=== PATIENT | female | born 1980 | race Caucasian/White ===

== ENCOUNTER 2018-06-09 09:17 | Emergency (ER) | payer OTHER, SELFPAY ==
[2018-06-09 09:20] VITALS: BP 122/84; PULSE 88; RESP 16; TEMP 36.9; O2SAT 99; BMI 23.8
--- NOTE | 2018-06-09 09:27 | DI.US.S_ITS ---
PROCEDURE: US OB <= 14 WEEKS FETUS INDICATIONS: POSITIVE HOME TEST, PRIOR HISTORY OF ECTOPIC OUTSIDE/PRIOR DATING DATA: Last menstrual period (LMP): Unknown. LMP-based estimated date of delivery (LIBORIO): Unknown. First dating scan (date and location): 06/09/18. Estimated date of delivery (LIBORIO) from first dating scan: 02/07/19. TECHNIQUE: Real-time scanning was performed of the fetus and maternal pelvic organs, with image documentation. Endovaginal scanning was also performed to better visualize the fetus and maternal ovaries. COMPARISON: None. FINDINGS: Embryo: A single intrauterine gestational sac is identified, which measures approximately 6 mm in diameter (mean gestational sac diameter), correlating with an estimated age of 5 weeks 2 days. A pole is not yet visualized. A yolk sac is seen. No significant subchorionic hemorrhage is appreciated. Measurement variability in dating: +/- 4 weeks by LMP, +/- 7 days by mean sac diameter (use before 6 weeks gestation if crown-rump length not able to be measured), +/- 5 days by crown-rump length (up to 8 weeks 6 days gestation), +/- 7 days by crown-rump length (up to 13 weeks 6 days gestation). Maternal organs: Ovaries are unremarkable. There may be a left-sided corpus luteum cyst. Limited images through the kidneys demonstrate no hydronephrosis. IMPRESSION: 1. Single intrauterine gestational sac. A pole/heart rate are not yet seen, which is felt to be related to the early gestational age. Please consider followup imaging in 1 to 2 weeks to confirm viability. 2. Estimated age is 5 weeks 2 days with a corresponding due date of 02/07/19. Dictated by: Esau Randall M.D. on 06/09/2018 at 9:46 Approved by: Esau Randall M.D. on 06/09/2018 at 9:48
--- NOTE | 2018-06-09 09:31 | PC.NURSE ---
unknown lmp per pt.
--- NOTE | 2018-06-09 09:40 | ED_ITS ---
HPI - General Adult General Chief complaint: OB/Uterine Contractions Stated complaint: Time Seen by Provider: 06/09/18 09:21 Source: patient Mode of arrival: ambulatory Limitations: no limitations History of Present Illness HPI narrative: Patient is a at approximately 8 weeks EGA. All of her prior pregnancies have been ?miscarriages ?she states that her last back in 2009 was a right-sided tubal ectopic when she had her tube removed. She states this was an unplanned . She did 2 positive home test 2 days ago. She denies any abdominal pain vaginal bleeding or loss of fluid. She came in because she was concerned of the location of the given her prior history of ectopic. Related Data Previous Rx's Medication Instructions Recorded vit,[id number] 1 tab PO DAILY #60 tab 06/09/18 [PNV 29-1] Allergies Allergy/AdvReac Type Severity Reaction Status Date / Time No Known Drug Allergies Allergy Verified 06/09/18 09:26 Review of Systems Constitutional Denies fever(s) Gastrointestinal Gastrointestinal: Denies abdominal pain, Denies nausea and Denies vomiting Genitourinary Denies dysuria, Denies urinary urgency, Denies vaginal discharge and Denies vaginal dryness Integumentary/Breasts Denies rash Hematologic/Lymphatic Denies easy bleeding and Denies easy bruising [facility] Medical History Ectopic (Acute) Social History lives independently: Yes Social History lives independently: Yes Exam Initial Vital Signs Initial Vital Signs: Vital Signs Temperature 98.4 F 06/09/18 09:20 Pulse Rate 88 06/09/18 09:20 Respiratory Rate 16 06/09/18 09:20 Blood Pressure 122/84 06/09/18 09:20 Pulse Oximetry 99 06/09/18 09:20 Const Orientation: alert and awake Resp Effort & Inspection: normal respiratory effort Cardio Rate: regular rate Skin Lesions: no lesions Rashes: no rashes Neuro General: alert and awake Cognition: normal cognition Speech: speech normal Extrem General: capillary refill normal Psych Appearance: grossly normal and well kempt Course Orders Ordered: ED Orders 06/09/18 09:27 US OB <= 14 weeks fetus Stat 06/09/18 09:54 ABO RH Type Stat HCG Quantitative Stat Vital Signs - 8 hr 06/09/18 09:20 06/09/18 10:16 06/09/18 10:33 Temperature 98.4 F 98.4 F Pulse Rate 88 88 86 Respiratory Rate 16 16 16 Blood Pressure 122/84 122/84 Blood Pressure [Left Arm] 110/75 Pulse Oximetry 99 99 100 Medical Decision Making Lab Data Lab results reviewed: Yes I reviewed the patient's lab results. Lab Results 06/09/18 06/09/18 Range/Units 09:54 09:54 HCG, Quant 4542.7 mIU/mL Blood Type A Negative Imaging Data Pelvic ultrasound: Radiologist's impression: [address] [address] Ultrasound Report Signed Patient: Mini Marti#: [id number] : 1980Acct:[id number] Age/Sex: 37 / FDate of Service: 06/09/18 Loc: ED Accession Number: [id number] Procedure: US OB <= 14 weeks fetus Ordering Provider: Romel Acuna D.O. PROCEDURE: US OB <= 14 WEEKS FETUS INDICATIONS: POSITIVE HOME TEST, PRIOR HISTORY OF ECTOPIC OUTSIDE/PRIOR DATING DATA: Last menstrual period (LMP): Unknown. LMP-based estimated date of delivery (LIBORIO): Unknown. First dating scan (date and location): 06/09/18. Estimated date of delivery (LIBORIO) from first dating scan: 02/07/19. TECHNIQUE: Real-time scanning was performed of the fetus and maternal pelvic organs, with image documentation. Endovaginal scanning was also performed to better visualize the fetus and maternal ovaries. COMPARISON: None. FINDINGS: Embryo: A single intrauterine gestational sac is identified, which measures approximately 6 mm in diameter (mean gestational sac diameter), correlating with an estimated age of 5 weeks 2 days. A pole is not yet visualized. A yolk sac is seen. No significant subchorionic hemorrhage is appreciated. Measurement variability in dating: +/- 4 weeks by LMP, +/- 7 days by mean sac diameter (use before 6 weeks gestation if crown-rump length not able to be measured), +/- 5 days by crown-rump length (up to 8 weeks 6 days gestation), +/- 7 days by crown-rump length (up to 13 weeks 6 days gestation). Maternal organs: Ovaries are unremarkable. There may be a left-sided corpus luteum cyst. Limited images through the kidneys demonstrate no hydronephrosis. IMPRESSION: 1. Single intrauterine gestational sac. A pole/heart rate are not yet seen, which is felt to be related to the early gestational age. Please consider followup imaging in 1 to 2 weeks to confirm viability. 2. Estimated age is 5 weeks 2 days with a corresponding due date of 02/07/19. Dictated by: Esau Randall M.D. on 06/09/2018 at 9:46 Approved by: Esau Randall M.D. on 06/09/2018 at 9:48 MDM Narrative Medical decision making narrative: Pelvic ultrasound shows a gestational sac and a yolk sac consistent with a intrauterine and no signs of ectopic . This does correspond with the level of the hCG. She is not having any vaginal bleeding or vaginal discharge. No indication for RhoGAM. I did inform the patient of the results of all of these testing. She is going [place]. She is going to tell her command today that she is . She was given return precautions. She expressed understanding and agreement with plan. Discharge Plan Departure Patient Disposition: Home Clinical Impression: Qualifiers: Weeks of gestation: less than 8 weeks Qualified Code(s): Z3A.01 - Less than 8 weeks gestation of Instructions: Diet Activity Restrictions/Additional Instructions: The ultrasound today does show a early intrauterine . You do need to make a [place] Also tell your command that your so that they can place him on a job that is safer you in your baby. Return to the emergency department for any new or worsening symptoms. Prescriptions: New PNV 29-1 29 mg iron- 1 mg tablet 1 tab PO DAILY Qty: 60 RF: 0
--- NOTE | 2018-06-09 09:42 | PC.NURSE ---
when asked, pt states[place] had to call very early and had to be waiting all day, its easier to go to [facility].
[2018-06-09 10:16] VITALS: BP 122/84; PULSE 88; RESP 16; TEMP 36.9; O2SAT 99; BMI 23.8
[2018-06-09 10:33] VITALS: BP 110/75; PULSE 86; RESP 16; O2SAT 100
[2018-06-09 11:47] LABS: HCG Quantitative /Beta subunit 4542.7 mIU/mL
== END 2018-06-09 12:15 | disposition home or self-care (01) ==
PROVIDERS: Emergency Provider Emergency Medicine
DX: O26.891 Other specified pregnancy related conditions, first trimester (principal); Z3A.01 Less than 8 weeks gestation of pregnancy
CPT/HCPCS: 76801; 76817; 84702; 86900; 86901; 99283

== ENCOUNTER → 2018-09-11 10:49 | Outpatient (CLI) | payer OTHER, SELFPAY ==
--- NOTE | 2018-09-11 | DI.MRI.S_ITS ---
PROCEDURE: MR HEAD/BRAIN WO CON INDICATIONS: APHASIA TECHNIQUE: Noncontrast axial T1 spin echo, axial T2 fast spin echo, sagittal and axial FLAIR, coronal T2 fast spin echo, axial gradient echo, axial diffusion and ADC through the brain. COMPARISON: None. FINDINGS: Image quality: Excellent. CSF Spaces: Basal cisterns are patent. No extra-axial fluid collections. Ventricles are normal in size and shape. Brain: No intracranial masses or hemorrhage. Lr/white matter interface is normal. Brainstem appears normal. Diffusion-weighted images demonstrate no acute ischemic insult. No chronic ischemic insults. Normal intravascular flow voids are present. Skull and face: Calvarium has normal marrow signal. Orbits appear normal. Sinuses: Sinuses and mastoids are clear. IMPRESSION: Unremarkable study, without an imaging explanation found for the patient's presenting symptoms. No findings of acute or subacute infarction can be seen. Dictated by: Yariel White M.D. on 09/11/2018 at 11:13 Approved by: Yariel White M.D. on 09/11/2018 at 11:14
== END ==
PROVIDERS: PCP Obstetrics & Gynecology; Visit Provider Obstetrics & Gynecology
DX: O09.892 Supervision of other high risk pregnancies, second trimester (principal); R47.01 Aphasia; R44.8 Other symptoms and signs involving general sensations and perceptions; Z3A.18 18 weeks gestation of pregnancy
CPT/HCPCS: 70551

== ENCOUNTER → 2019-01-13 13:47 | Outpatient (CLI) | payer OTHER, SELFPAY ==
[2019-01-14 14:17] LABS: Strep Grp B PCR NEG for Grp B Strep
== END ==
PROVIDERS: PCP Obstetrics & Gynecology; Visit Provider Family Medicine
DX: Z34.83 Encounter for supervision of other normal pregnancy, third trimester (principal); Z3A.36 36 weeks gestation of pregnancy
CPT/HCPCS: 87653

== ENCOUNTER → 2019-01-19 07:39 | Outpatient (CLI) | payer OTHER, SELFPAY ==
--- NOTE | 2019-01-19 07:40 | DI.US.S_ITS ---
PROCEDURE: US OB LIMITED INDICATIONS: DECREASED SIZE FOR DATES AND POOR GROWTH OUTSIDE/PRIOR DATING DATA: Last menstrual period (LMP): Not available. LMP-based estimated date of delivery (LIBORIO): Not available. First dating scan (date and location): 06/09/18. Estimated date of delivery (LIBORIO) from first dating scan: 02/07/19. TECHNIQUE: Real-time scanning was performed of the fetus, with image documentation and biometric measurements. Endovaginal scanning: No data for this study. COMPARISON: None. FINDINGS: General: A single living intrauterine gestation is present. Presentation: Vertex. Placenta: Placental position is a right-sided, without previa. Amniotic fluid index: 12.1 cm, normal range is 5-24 cm. heart rate: 136 beats per minute. biometrics: Biparietal diameter: 9.0 cm, 36 weeks 2 days Head circumference: 33.4 cm, 38 weeks 1 day Abdominal circumference: 29.6 cm, 33 weeks 4 days Femur length: 6.8 cm, 34 weeks 6 days Estimated gestational age from initial scan: 37 weeks 2 days Composite gestational age from present scan: 35 weeks 5 days Estimated weight and percentile: 2487 g, 6th percentile Measurement variability for biometric dating: +/- 7 days from 14 weeks to 15 weeks 6 days gestation, +/- 10 days from 16 weeks to 21 weeks 6 days gestation, +/- 2 weeks from 22 weeks to 27 weeks 6 days gestation, +/- 3 weeks for 28 weeks gestation or later. weight reference: 4500 g or EFW >90/95% is considered macrosomia or large for gestational age. EFW <10% is small for gestational age. EFW 5% or less is considered intra-uterine growth restriction. Other: Not applicable. IMPRESSION: The estimated weight is at the lower 6th percentile for current gestational age based on the earliest OB ultrasound, approaching the diagnosis of microsomia. Normal amniotic fluid volume. The delivery date currently is estimated to be centered on 02/07/19 from the earliest OB ultrasound. Close followup is recommended. Dictated by: Javy Patterson M.D. on 01/19/2019 at 13:20 Approved by: Javy Patterson M.D. on 01/19/2019 at 13:24
== END ==
PROVIDERS: PCP Obstetrics & Gynecology; Visit Provider Family Medicine
DX: Z36.4 Encounter for antenatal screening for fetal growth retardation (principal); Z3A.35 35 weeks gestation of pregnancy
CPT/HCPCS: 76815

== ENCOUNTER 2019-01-20 14:34 | Outpatient (CLI) | payer OTHER, SELFPAY | END 2019-01-20 15:20 | disposition home or self-care (01) | LOC: OB 01-27 14:32 | PROVIDERS: PCP Obstetrics & Gynecology; Visit Provider Family Medicine | DX: O36.5930 Maternal care for other known or suspected poor fetal growth, third trimester, not applicable or unspecified (principal); O09.523 Supervision of elderly multigravida, third trimester; O26.23 Pregnancy care for patient with recurrent pregnancy loss, third trimester; Z3A.37 37 weeks gestation of pregnancy | CPT/HCPCS: 59025; G0378; G0379 ==

== ENCOUNTER 2019-01-23 09:30 | Observation (INO) | payer OTHER, SELFPAY ==
--- NOTE | 2019-01-23 10:58 | DI.US.S_ITS ---
PROCEDURE: US OB BIOPHYSICAL PROFILE INDICATIONS: IUGR OUTSIDE/PRIOR DATING DATA: Last menstrual period (LMP): Not available. LMP-based estimated date of delivery (LIBORIO): Not available. First dating scan (date and location): 06/09/18. Estimated date of delivery (LIBORIO) from first dating scan: 02/07/19. TECHNIQUE: Real-time scanning was performed of the fetus for biophysical profile, with image documentation. COMPARISON: [facility], OB LIMITED, 01/19/2019, 8:07. FINDINGS: General: A single live intrauterine gestation is present. Presentation: Vertex Placenta: Placental position is left fundal, without previa. Amniotic fluid index: 10.7 cm, normal range is 5-24 cm. heart rate: 145 beats per minute. Maternal cervical canal: Not evaluated. Estimated gestational age from initial scan: 37 weeks 6 days. Biophysical profile: Tone: 2 points. Movement: 2 points. Respiration: 2 points. Largest pocket of fluid: 2 points. (Largest pocket 4.5 cm) IMPRESSION: Normal biophysical profile, 8/8 points. Dictated by: Yariel White M.D. on 01/23/2019 at 11:18 Approved by: Yariel White M.D. on 01/23/2019 at 11:20
--- NOTE | 2019-01-23 11:12 | P.TNLD_ITS ---
Visit Information Visit Information Date of evaluation: 01/23/19 Primary OB Provider: Jt Macias On-call OB Provider: Johanne Maher Reason for Evaluation: Yes non-stress test non-stress test reason: other Comments/Additional reasons for admission: This patient is a 38-year-old @37+5 presenting for scheduled evaluation due to IUGR discovered at 37 week ultrasound. The patient had a late transfer of care from the [facility] in her 35th week of , and reports that she has a history of 1 ectopic , but that all of her other pregnancies ended in miscarriage during the 1st trimester. She reports that these were never evaluated for cause, and she has not been on aspirin or Lovenox during this . She denies any other contributory medical or surgical history. Patient reports feeling well today, reports copious movement, no loss of fluid, vaginal bleeding, no contractions, no other complaints obstetrical or otherwise. [facility] Medical History Basal cell carcinoma (Acute) Ectopic (Acute ~2009) Habitual aborter (Acute) Surgical History H/O dilation and curettage (Acute ~2009) History of breast augmentation (Acute ~2002) History of rhinoplasty (Acute ~2006) History of salpingectomy (Acute ~2009) Family History Mother DCIS (ductal carcinoma in situ) Asthma Grandmother Anal cancer DCIS (ductal carcinoma in situ) Asthma Hypertension Grandfather Lung cancer Polio Social History marital status: unmarried,single lives independently: Yes pets and animals: Yes (Dog) education level: college occupational status: employed special minal needs: No leisure activities: exercise Smoking Status: Never smoker Review of Systems Constitutional Constitutional: Reports system reviewed and no additional complaints, except as documented Cardiovascular Cardiovascular: Reports system reviewed; no additional complaints, except as documented Respiratory Respiratory: Reports system reviewed and no additional complaints, except as documented Gastrointestinal Gastrointestinal: Reports system reviewed and no additional complaints, except as documented Genitourinary Genitourinary: Reports system reviewed and no additional complaints, except as documented Neurologic Neurologic: Reports system reviewed and no additional complaints, except as documented Exam Vital Signs (past 8 hours): 122/80, HR 75, 35.9 C Const General: cooperative, healthy appearing and comfortable GI Palpation: soft and No tender Evaluation Evaluation Baseline heart rate: 135 Variability: Average (6-10) monitor accelerations: Present monitor decelerations: Absent Contraction Frequency (minutes): 2 Category of Tracing: I Comments: BPP 10/10, ODILIA 10 Diagnosis, Plan/Disposition Plan/Disposition Plan: Patient with reassuring status, for discharge and f/u as scheduled this week. OB Disposition: home
== END 2019-01-23 11:45 | disposition home or self-care (01) ==
PROVIDERS: Admitting Provider Family Medicine; PCP Obstetrics & Gynecology; Visit Provider Family Medicine
DX: O36.5930 Maternal care for other known or suspected poor fetal growth, third trimester, not applicable or unspecified (principal); O26.23 Pregnancy care for patient with recurrent pregnancy loss, third trimester; O09.523 Supervision of elderly multigravida, third trimester; Z3A.37 37 weeks gestation of pregnancy
CPT/HCPCS: 59025; 59050; 76819; G0378; G0379

== ENCOUNTER → 2019-01-26 07:47 | Outpatient (CLI) | payer OTHER, SELFPAY ==
--- NOTE | 2019-01-26 07:48 | DI.US.S_ITS ---
PROCEDURE: US OB LIMITED INDICATIONS: WEIGHT AND BIOPHYSICAL PROFILE OUTSIDE/PRIOR DATING DATA: Last menstrual period (LMP): Not available. LMP-based estimated date of delivery (LIBORIO): Not available. First dating scan (date and location): 06/09/18. Estimated date of delivery (LIBORIO) from first dating scan: 02/07/19. TECHNIQUE: Real-time scanning was performed of the fetus, with image documentation and biometric measurements. Biophysical profile was also obtained. COMPARISON: [facility], OB LIMITED, 01/19/2019, 8:07. FINDINGS: General: A single living intrauterine gestation is present. Presentation: Vertex. Placenta: Placental position is left fundal, without previa. Amniotic fluid index: 10.3 cm, normal range is 5-24 cm. heart rate: 136 beats per minute. Maternal cervical canal: Not well-seen. biometrics: Biparietal diameter: 37 weeks 0 days Head circumference: 37 weeks 4 days Abdominal circumference: 36 weeks 4 days Femur length: 37 weeks 2 days Estimated gestational age from initial scan: 38 weeks 2 days Composite gestational age from present scan: 37 weeks 1 day Estimated weight and percentile: 3066 g; 29% of Measurement variability for biometric dating: +/- 7 days from 14 weeks to 15 weeks 6 days gestation, +/- 10 days from 16 weeks to 21 weeks 6 days gestation, +/- 2 weeks from 22 weeks to 27 weeks 6 days gestation, +/- 3 weeks for 28 weeks gestation or later. weight reference: 4500 g or EFW >90/95% is considered macrosomia or large for gestational age. EFW <10% is small for gestational age. EFW 5% or less is considered intra-uterine growth restriction. Biophysical profile: Tone: 2 points. Movement: 2 points. Respiration: 2 points. Largest pocket of fluid: 2 points. Umbilical artery Doppler: Not performed. IMPRESSION: 1. Single living IUP redemonstrated and interval growth is normal. 2. Normal biophysical profile. Dictated by: Amador Coleman Isreal Interpreted: Ruben Khanna MD on 01/27/2019 at 14:16 Approved by: Ruben Khanna M.D. on 01/27/2019 at 14:25
== END ==
PROVIDERS: PCP Family Medicine; Visit Provider Family Medicine
DX: Z36.2 Encounter for other antenatal screening follow-up (principal); Z3A.37 37 weeks gestation of pregnancy
CPT/HCPCS: 76815; 76819

== ENCOUNTER 2019-01-26 08:25 | Outpatient (CLI) | payer OTHER, SELFPAY ==
--- NOTE | 2019-01-26 09:02 | PM.OBTRLD ---
Visit Information Visit Information Date of evaluation: 01/26/19 Primary OB Provider: Jt Macias On-call OB Provider: Merly Bajwa Reason for Evaluation: Yes non-stress test Comments/Additional reasons for admission: Pt with IUGR on last growth ultrasound. Ultrasound this morning showing 29th percentile as per solar thermal technician (report not yet available). Good movement. BPP on 01/23 was 8/8. [facility] Social History marital status: unmarried,single lives independently: Yes pets and animals: Yes (Dog) education level: college occupational status: employed special minal needs: No leisure activities: exercise Smoking Status: Never smoker Evaluation Evaluation Baseline heart rate: 135 Variability: Moderate (11-25) monitor accelerations: Present monitor decelerations: Absent Diagnosis, Plan/Disposition Plan/Disposition Plan: Pt with IUGR, likely now resolved although report not yet visible. Good movement. Will continue twice weekly NST for now, return on Friday. Has f/u OB appt tomorrow. OB Disposition: home
== END 2019-01-26 09:30 | disposition home or self-care (01) ==
LOC: LABOR 09:13 → OB 01-27 14:33
PROVIDERS: PCP Family Medicine; Visit Provider Family Medicine
DX: O36.5930 Maternal care for other known or suspected poor fetal growth, third trimester, not applicable or unspecified (principal); O26.23 Pregnancy care for patient with recurrent pregnancy loss, third trimester; O09.523 Supervision of elderly multigravida, third trimester; Z3A.37 37 weeks gestation of pregnancy
CPT/HCPCS: 59025; 76815; 76819; G0378; G0379

== ENCOUNTER → 2019-01-27 14:32 | Outpatient (CLI) | payer OTHER, SELFPAY | PROVIDERS: PCP Family Medicine; Visit Provider Family Medicine | DX: Z34.83 Encounter for supervision of other normal pregnancy, third trimester (principal); Z3A.38 38 weeks gestation of pregnancy | CPT/HCPCS: 87086 ==

== ENCOUNTER 2019-01-27 14:49 | Outpatient (CLI) | payer OTHER, SELFPAY ==
--- NOTE | 2019-01-27 16:07 | P.TNLD_ITS ---
Visit Information Visit Information Date of evaluation: 01/27/19 Primary OB Provider: Jt Macias On-call OB Provider: Merly Bajwa Reason for Evaluation: Yes other Comments/Additional reasons for admission: Pt with fairly significant vaginal bleeding after cervical exam in clinic. Significant cramping as well. Sent to L&D for monitoring. [facility] Social History marital status: unmarried,single lives independently: Yes pets and animals: Yes (Dog) education level: college occupational status: employed special minal needs: No leisure activities: exercise Smoking Status: Never smoker Evaluation Evaluation Baseline heart rate: 130 Variability: Moderate (11-25) monitor accelerations: Present monitor decelerations: Absent Contraction Frequency (minutes): 4 Uterine Contraction Intensity: Mild Category of Tracing: I Diagnosis, Plan/Disposition Final Diagnosis (1) Vaginal bleeding: Current Visit: Yes Status: Acute Plan/Disposition Plan: Pt with vaginal bleeding, more than anticipated, after cervical check in clinic. FHT reassuring, and bleeding now subsided. Does have cramping contractions, which are not tapering off. Safe for d/c home. OB Disposition: home
== END 2019-01-27 16:20 | disposition home or self-care (01) ==
LOC: OB 02-02 12:08
PROVIDERS: PCP Family Medicine; Visit Provider Family Medicine
DX: O46.93 Antepartum hemorrhage, unspecified, third trimester (principal); O26.23 Pregnancy care for patient with recurrent pregnancy loss, third trimester; O09.523 Supervision of elderly multigravida, third trimester; Z3A.37 37 weeks gestation of pregnancy; O36.5930 Maternal care for other known or suspected poor fetal growth, third trimester, not applicable or unspecified; Z3A.38 38 weeks gestation of pregnancy
CPT/HCPCS: 59025; 59050; 87086; G0378; G0379

== ENCOUNTER 2019-01-29 09:28 | Outpatient (CLI) | payer OTHER, SELFPAY ==
--- NOTE | 2019-01-29 10:09 | PM.OBTRLD ---
Visit Information Visit Information Date of evaluation: 01/29/19 Primary OB Provider: Jt Macias On-call OB Provider: Angella Savage Reason for Evaluation: Yes non-stress test non-stress test reason: other (IUGR) Vital Signs Vital Signs: Blood pressure 107/74, pulse 96, temperature 36.1? [facility] Social History marital status: unmarried,single lives independently: Yes pets and animals: Yes (Dog) education level: college occupational status: employed special minal needs: No leisure activities: exercise Smoking Status: Never smoker Evaluation Evaluation Baseline heart rate: 130 Variability: Moderate (11-25) monitor accelerations: Present monitor decelerations: Absent Uterine Contraction Intensity: Mild Category of Tracing: I Diagnosis, Plan/Disposition Final Diagnosis (1) 37 weeks gestation of : Current Visit: Yes Status: Acute (2) IUGR, : Current Visit: Yes Status: Acute Plan/Disposition Plan: Patient with NST for IUGR that is reactive. Continue weekly nonstress tests and keep her normal OB follow-up appointment OB Disposition: home
== END 2019-01-29 10:10 | disposition home or self-care (01) ==
LOC: LABOR 10:00 → OB 02-02 12:09
PROVIDERS: PCP Family Medicine; Visit Provider Family Medicine
DX: O36.5930 Maternal care for other known or suspected poor fetal growth, third trimester, not applicable or unspecified (principal); O26.23 Pregnancy care for patient with recurrent pregnancy loss, third trimester; Z3A.38 38 weeks gestation of pregnancy
CPT/HCPCS: 59025; G0378; G0379

== ENCOUNTER 2019-02-01 14:24 | Outpatient (CLI) | payer OTHER, SELFPAY ==
--- NOTE | 2019-02-01 15:43 | PM.OBTRLD ---
[facility] Social History marital status: unmarried,single lives independently: Yes pets and animals: Yes (Dog) education level: college occupational status: employed special minal needs: No leisure activities: exercise Smoking Status: Never smoker Evaluation Evaluation Comments: Reviewed patient's NST today. Category 1 tracing reactive. Blood pressure initially was mildly elevated repeat blood pressure is normal. Diagnosis, Plan/Disposition Plan/Disposition Plan: S GA term . Biweekly NSTs. AST today is normal repeat NST on Friday. Re-evaluate in the office on Friday.
== END 2019-02-01 15:00 | disposition home or self-care (01) ==
LOC: LABOR 15:00 → OB 02-02 12:10
PROVIDERS: PCP Family Medicine; Visit Provider Family Medicine
DX: O36.5930 Maternal care for other known or suspected poor fetal growth, third trimester, not applicable or unspecified (principal); O09.523 Supervision of elderly multigravida, third trimester; O26.23 Pregnancy care for patient with recurrent pregnancy loss, third trimester; Z3A.39 39 weeks gestation of pregnancy
CPT/HCPCS: 59025; G0378; G0379

== ENCOUNTER 2019-02-04 08:30 | Outpatient (CLI) | payer OTHER, SELFPAY ==
--- NOTE | 2019-02-04 09:47 | P.TNLD_ITS ---
[facility] Social History marital status: unmarried,single lives independently: Yes pets and animals: Yes (Dog) education level: college occupational status: employed special minal needs: No leisure activities: exercise Smoking Status: Never smoker Evaluation Evaluation Comments: Reviewed tracing category 1 with good accelerations normal blood pressure on mom pulse. Baby's heart tones are great. Tracing was done due to concern for intrauterine growth restriction. Although conflicting evidence on recent ultrasound. Discussed with patient. Recommendations. And induction of labor at this point she will be scheduled for Cytotec induction this evening and Pitocin tomorrow for IUGR.
== END 2019-02-04 09:40 | disposition home or self-care (01) ==
LOC: LABOR 08:49 → OB 12:52
PROVIDERS: PCP Family Medicine; Visit Provider Family Medicine
DX: O09.523 Supervision of elderly multigravida, third trimester (principal); O26.23 Pregnancy care for patient with recurrent pregnancy loss, third trimester; O36.5930 Maternal care for other known or suspected poor fetal growth, third trimester, not applicable or unspecified; Z3A.39 39 weeks gestation of pregnancy
CPT/HCPCS: 59025; G0378; G0379

== ENCOUNTER 2019-02-04 17:45 | Inpatient (IN) | payer OTHER, SELFPAY ==
[2019-02-04 19:27] VITALS: BP 112/81
[2019-02-04 20:31] LABS: Add Manual Diff / Slide Review NO; Basophils Absolute Auto 0 /uL (0-100); Basophils Percent Auto 0.6 % (0-2); Eosinophils Absolute Auto 0 /uL (0-450); Eosinophils Percent Auto 0.7 % (2-4); Hematocrit 36.2 % (36-46); Hemoglobin 12.5 g/dL (12.0-16.0); Lymphocytes Absolute Auto 2100 /uL (1100-4500); Lymphocytes Percent Auto 32.7 % (25-40); Mean Corpuscular HGB Conc 34.6 % (30-36); Mean Corpuscular Hemoglobin 30.5 PG (26-34); Mean Corpuscular Volume 88.2 fL (80-100); Monocytes Absolute Auto 700 /uL (0-900); Monocytes Percent Auto 11.2 % (3-14); Neutrophils Absolute Auto 3600 /uL (1500-7000); Neutrophils Percent Auto 54.8 % (50-75); Platelet Count 161 X10^3/uL (150-400); Red Cell Distribution Width 12.5 % (11.6-14.8); White Blood Cell Count 6.5 X10^3/uL (4.5-11.0)
[2019-02-04] MEDS: miSOPROStoL 25 MCG TABLET VAG (20:36)
[2019-02-04] MEDS: ZOLPIDEM 5 MG TABLET PO (21:31)
[2019-02-05] VITALS (7 sets, daily range): BP systolic 112–128; BP diastolic 72–86; PULSE 77–87; RESP 12–15; TEMP 36.7–36.9; O2SAT 95–100
--- NOTE | 2019-02-05 | PATH_ITS ---
[facility] Accession Number: [id number] . 01 Material submitted: . fallopian tube - SEGMENT OF LEFT FALLOPIAN TUBE . 02 Diagnosis: Segment of Left Fallopian Tube, Sterilization: One circumferential section of fallopian tube. MRV 02/10/2019 1113 Local . 02 Electronically signed: . Julia Dinero MD, Pathologist NPI- [id number] . 01 Gross description: . Received in formalin, labeled segment of L fallopian tube, is a nonfimbriated segment of fallopian tube (length-1.4 cm, diameter-0.5 cm) with gary-pink smooth shiny serosa and a gary unremarkable lumen. Hat Presser serial sections submitted in cassette A1. ([id number]) /MRV 02/09/2019 1113 Local . 02 Pathologist provided ICD-10: Z30.2 . 02 CPT . 806107 Performed at: 01 [facility] [address] [facility], [place], [place] [id number] MD Kiel Berry MD Phone: [phone] Performed at: 02 [facility] [address] [place], [place] [id number] MD Julia Dinero MD Phone: [phone]
[2019-02-05] MEDS: LACTATED RINGERS 1,000 ML 100 ML IV ×4 (07:15→23:04)
--- NOTE | 2019-02-05 07:42 | PM.HP.1 ---
History of Present Illness History of Present Illness Date Patient Seen: 02/05/19 Time Patient Seen: 07:42 Chief complaint: INDUCTION Narrative: 38-year-old female who is itchy 7 para 0 393 weeks days gestational age consistent with early ultrasound as well as LMP. problems including habitual border late transfer of care to [facility] at 35 weeks from the [place] blood type Rh negative for again given IUGR found 37 week ultrasound with biweekly NSTs and repeat ultrasound which showed estimated weight at 27% as opposed to 10%. Patient is here for induction of labor because of concerns about IUGR. Medicine these have been reactive during the last few weeks. Risks benefits of the induction process with her were reviewed including increased risk of off delivery and prolonged duration of labor. Consent was obtained and patient agreed. Patient's care began at 7 weeks at the [place] [facility] she had routine follow-up and care. Her laboratory testing showed blood type A negative rubella unknown GBS negative HIV negative GC Chlamydia negative and hepatitis-B surface antigen negative. Normal glucose screen and normal ultrasound. Medications during vitamins. Patient's social history denies smoking drinking or alcohol. Denies recreational drugs. Gynecological history 6 previous miscarriages. Patient was not on aspirin or progesterone during this . Five previous miscarriages. One tubal . Previous history of chlamydia treated many years ago. Past medical history patient denies history of hypertension or heart disease asthma. Past surgical history breast augmentation rhinoplasty and salpingo oophorectomy. Patient History Family & Social History Social History: lives independently Yes Tobacco & Substance use: Smoking Status Never smoker Meds Home Medications and Allergies Home Medications Medication Instructions Recorded Confirmed Type vit,[id number] 1 tab PO DAILY #60 tab 06/09/18 02/04/19 Rx [PNV 29-1] acetaminophen 325 mg capsule 650 mg PO Q6H PRN 01/06/19 02/04/19 History Allergies Allergy/AdvReac Type Severity Reaction Status Date / Time cefaclor [From [facility]] Allergy Verified 02/01/19 13:34 Penicillins Allergy Severe Verified 02/01/19 13:34 hives Sulfa (Sulfonamide Allergy Verified 02/01/19 13:34 Antibiotics) Exam Narrative Exam Narrative: . General: Alert no apparent distress. Affect is appropriate. Saira it is uncomfortable. HEENT: Neck is supple without lymphadenopathy pupils equal round and reactive. Cardio: S1-S2 regular rate and rhythm. Respiratory: Lungs clear to auscultation. Abdomen: Gravid. Extremities: Normal deep tendon reflexes trace edema. [place]: Mild to moderate. Contractions every 3-5 minutes heart tones: Category 1 Objective Labs Result Diagrams: 02/04/19 20:16 Labs: Laboratory Results - last 24 hr 02/04/19 02/04/19 20:16 20:16 WBC 6.5 RBC 4.10 Hgb 12.5 Hct 36.2 MCV 88.2 MCH 30.5 MCHC 34.6 RDW 12.5 Plt Count 161 Neut % (Auto) 54.8 Lymph % (Auto) 32.7 [place] % (Auto) 11.2 Eos % (Auto) 0.7 L Baso % (Auto) 0.6 Neut # (Auto) 3600 Lymph # (Auto) 2100 [place] # (Auto) 700 Eos # (Auto) 0 Baso # (Auto) 0 Blood Type A Negative Antibody Screen Negative Assessment & Plan Assessment & Plan narrative: 38-year-old female g7 para 0 history includes hurt a bit cool border late transfer of care Rh-negative IUGR and advanced maternal age with normal genetic screening. Patient is in the hospital for induction of labor due to IUGR. Patient has had frequent monitoring over the last 2 weeks with normal and STDs. Because of unfavorable cervix. She was admitted the hospital lasting pain and given a dose of Cytotec vaginally. After 1 dose patient had contractions. She also had blood screening done a negative blood type hemoglobin hematocrit are stable. Patient has a number of allergies including penicillin cephalosporins as well as sulfa medication. Inpatient orders were written for for labor and delivery. With monitoring. Pitocin induction after Cytotec. Epidural and expectant management. Reviewed benefits and common complications of labor process.
[2019-02-05] MEDS: ONDANSETRON 4 MG/2 ML INJ (10:20)
[2019-02-05] MEDS: OXYTOCIN PREMIX 30 UNIT/500 ML PLAST..BAG IV (10:38)
--- NOTE | 2019-02-05 11:19 | PM.OBPNLAB ---
Date/Time Date Patient Seen: 02/05/19 Time Patient Seen: 11:19 Pain Control Pain control: tolerating well and epidural Comments: Epidural doing well. Pelvic Exam Dilation (cm): 3 Effacement (%): 80 station: -2 Amniotic membrane status: Leaking Comments: Rupture of membranes at 11:12 a.m. Scantly meconium-stained fluid. Baby mom tolerated procedure well. Contractions Date/Time contractions began: Acute 3-5 minutes Contractions on admission: regular Monitor mode: External Pitocin rate (mU/min): 3 Contraction pattern: Irregular Status status: Category l Heart Rate Baseline: 135 Monitor Accelerations: Present Monitor Decelerations: Absent Monitor Variability: Moderate Assessment and Plan Assessment: active labor Plan: continuous present management Comments: Doing well rupture of membranes mild meconium stained fluid. Category 1 tracing. Pitocin is started. Epidural is in place. Vital signs are stable. Mom's afebrile. Continue to titrate Pitocin. Mcrae catheter will be placed. Ongoing expectant management.
--- NOTE | 2019-02-05 13:01 | PM.OBPNLAB ---
Date/Time Date Patient Seen: 02/05/19 Time Patient Seen: 13:02 Pain Control Pain control: tolerating well Pelvic Exam Dilation (cm): 7 Effacement (%): 90 station: 0 Amniotic membrane status: Leaking Contractions Monitor mode: External Pitocin rate (mU/min): 6 Contraction pattern: Regular Status status: Category ll Comments: Intermittent variable D cells probably due to cord compression. Good reactivity between. Strep is being monitored continuously. Pitocin decreased. Recent cervical exam shows good progression of labor. Now 6-7 cm 90% effaced -1 to 0 station. Assessment and Plan Assessment: active labor Plan: continuous present management Comments: Doing well good progress. Variable decelerations with good heart tones be throughout. Decreased Pitocin. Category 2 tracing due to variability of intermittent D cells variable. Change position. Decreased Pitocin. Patient has had a fluid bolus vital signs are stable afebrile.
--- NOTE | 2019-02-05 14:04 | PM.AN.REGBLK ---
Regional Block Pre-procedure Procedure: Continuous Lumbar Epidural for L&D Attending OB provider: Jt Macias PMH/ROS narrative: 39+ weeks EGA for induction for IUGR. No other complications with . Healthy. Hx: No personal or family history of anesthesia problems. ASA Class: II Labs: Hct 36.2 % (36-46) 02/04/19 20:16 Plt Count 161 X10^3/uL (150-400) 02/04/19 20:16 Medications: Current Medications Generic Name Dose Route Start Last Admin Trade Name Freq PRN Reason Stop Dose Admin Lactated Ringer's 1,000 mls @ 100 mls/hr 02/04/19 18:15 02/05/19 07:15 Lactated Ringers IV 100 mls/hr CONT JAREN Administration Oxytocin/Lactated Ringer's 30 unit in 500 mls @ 3 mls/hr 02/04/19 18:15 02/05/19 10:38 Oxytocin Premix IV 3 milliunit/min TITRATE JAREN 3 mls/hr Administration Protocol 3 MILLIUNIT/MIN Lactated Ringer's 1,000 mls @ 100 mls/hr 02/04/19 18:15 Lactated Ringers IV CONT JAREN FENT 2MCG/ML BUPIV 0.125% EPI 200 mcg in 100 mls @ 10 mls/hr 02/05/19 08:15 Fentanyl/Bupiv/Ns 2mcg/Ml - 0.125% EPIDURAL CONT JAREN Misoprostol 25 mcg 02/04/19 18:04 02/04/19 20:36 Cytotec VAG 25 mcg Q4HR PRN Administration Cervical Ripening Ondansetron HCl 4 mg 02/05/19 11:53 Zofran IV Q6HR PRN Nausea And Vomiting Zolpidem Tartrate 5 mg 02/04/19 21:00 02/04/19 21:31 Ambien PO 5 mg BEDTIME PRN Administration Sleep Allergies: Allergies Allergy/AdvReac Type Severity Reaction Status Date / Time cefaclor [From [facility]] Allergy Verified 02/01/19 13:34 Penicillins Allergy Severe Verified 02/01/19 13:34 hives Sulfa (Sulfonamide Allergy Verified 02/01/19 13:34 Antibiotics) Procedure Insertion date: 02/05/19 Insertion time: 10:12 Prep/Local: betadine x3 Interspace: L2-3 Patient position: sitting Needle: 18 gauge Ifeoma Loss of resistance with: saline ZABRINA at (cm): 4 Catheter placed at SKIN (cm): 9 Catheter in SPACE (cm): 5 Initial Medications TEST DOSE time: 10:18 TEST DOSE: 1.5% lidocaine with epinephrine 1:200k (mL): 3 Infusion INFUSION: 0.125% bupivacaine and with fentanyl 2 mcg/mL Initial rate (mL/hr): 10 Subsequent interventions: 12:50 bolus 5mL 0.25% bupivacaine 16:30 bolus 6mL 0.25% bupivacaine 19:30 20mL 2% lidocaine in preparation for 19:35 to OR Post-procedure Anesthesia time START: 10:12 Anesthesia time END: 19:35 Post-procedure Anesthesia Assessment: Yes CV function: HR/BP stable and Yes Resp function: RR/sat/airway adequate
--- NOTE | 2019-02-05 14:51 | PM.OBPNLAB ---
Date/Time Date Patient Seen: 02/05/19 Time Patient Seen: 14:51 Pain Control Pain control: tolerating well and epidural Pelvic Exam Dilation (cm): 9 Effacement (%): 90 station: +1 Amniotic membrane status: Leaking Contractions Monitor mode: External Contraction pattern: Regular Status status: Category ll Heart Rate Baseline: 120 Monitor Accelerations: Present Monitor Decelerations: Absent Monitor Variability: Moderate Assessment and Plan Assessment: active labor Plan: continuous present management Comments: Patient's moderate variability. Tracing now category 1. Pitocin off. Oxygen off. Patient had a time of decreased variability which is now improved. Fluid boluses been given. Good continued progress of labor. She is now 9 cm anterior lip. 0 to +1 station. Vital signs are currently stable. She is afebrile. Continue current care. Close expectant management. Will be pushing soon.
--- NOTE | 2019-02-05 17:43 | PM.OBPNLAB ---
Date/Time Date Patient Seen: 02/05/19 Time Patient Seen: 17:44 Pain Control Pain control: tolerating well and epidural Pelvic Exam Dilation (cm): 10 Effacement (%): 100 station: +2 Amniotic membrane status: Leaking Contractions Monitor mode: External Contraction pattern: Regular Status status: Category l Heart Rate Baseline: 135 Monitor Accelerations: Absent Monitor Decelerations: Episodic Monitor Variability: Moderate Assessment and Plan Assessment: active labor Plan: continuous present management Comments: Complete and started pushing. Some intermittent variable D cells. Good reactivity. Vital signs stable. Temperature normal. 3 mu Pitocin. Head well engaged. +1 to +2 station. Cord compression cause of variable decelerations.
[2019-02-05] MEDS: CLINDAMYCIN 900 MG/50 ML PIGGYBACK 50 MG IV (19:40)
--- NOTE | 2019-02-05 19:53 | SUR.OPER ---
Supine on Padded OR bed, head on pillow, safety belt at thigh, arms secured on padded arm boards at <90 degrees abduction. Bump under right buttock. Legs uncrossed with pillow under knees, gel pad to heels, tape over blanket to lower legs.
--- NOTE | 2019-02-05 20:09 | SUR.OPER ---
FHR 120 TOB at 19:55 alive mail Cord blood x 2 and placenta given to OB nurse
--- NOTE | 2019-02-05 20:44 | P.PCN_ITS ---
Procedures Date/Time Date of procedure: 02/05/19 Time of procedure: 20:44 General Procedure description: Procedure: Lower segment transverse section Consent: Verbal and written informed consent were obtained from the patient placed on the chart. Indications: 38-year-old G6 para a 0 at 39 weeks gestational age for due to continued category 2 heart tracing during stage II of labor with slow descent Findings: Normal uterus right previous tubal Normal male Anesthesia: Epidural Surgeon: Dr. Jt Macias [employer] Install[employer] Inspector: Dr. cole Estimated blood loss: 500 mL Drains: Mcrae to gravity. IV fluids: 1800 Consent: Signed and in the chart for with tubal ligation Description of procedure: The patient was brought to the operating room after her spinal epidural, preparation, and Mcrae had been performed. The abdomen was prepped and draped in tested for for analgesia. When it was found to be adequate, a lower abdominal Pfannenstiel incision was made with first with a knife and cared down to the fascia with a second knife. The fascia was incised in the midline and extended laterally with a knife. Bleeding points were clamped with hemostats and Bovie coagulated. The rectus muscles were by blunt dissection. The rectus muscles were divided in the midline and the peritoneum was grasped with hemostats and carefully entered with Darden scissors. The incision was extended bilaterally. The bladder blade was then placed. The vesicoperitoneum was grasped with smooth pickups, entered with Metzenbaum scissors, and extended laterally. The bladder flap was created by gently blunt dissection and placed behind the bladder blade. The lower uterine segment was noted to be thin was carefully incised with the scalpel and extended laterally with the fingers. A live infant was found to be in the vertex position. The head was then easily elevated with the hand. Head was delivered with the use of a vacuum. The baby was then suctioned and cried immediately, and was handed to the waiting attendant. The placenta was delivered manually. The uterus was explored with a wet lap sponge and found to be clear membranes. The first layer of the uterine closure was with running locking #1 chromic catgut suture. The second layer with an imbricating #1 chromic catgut suture. Hemostasis was carefully checked and found to be satisfactory. The bladder flap was closed with a running 2-0 chromic catgut suture. The fallopian tubes and ovaries were inspected and to be found normal bilaterally. The right tube was inspected. Shows previous tubal scar with non connected tube. Attention was taken to the left tube which was ligated in a modified [place] a procedure where the intervening segment was removed. Afterwards bleeding was found to be well controlled. After sponge and needle counts were found to be correct the peritoneum was closed with 2-0 chromic catgut suture. Rectus muscles were approximated in the lower midline. The fascia was closed with a 2 running 0 Vicryl from lateral to midline. The subcutaneous tissue was approximated with interrupted 2.0 plain gut. Bleeding points were Bovie and coagulated. The subcutaneous tissue was approximated with 20 plain gut suture. The skin was closed with 1-0 running subcuticular stitch. Urinary output was adequate and normal patient left to the recovery room in good condition.
[2019-02-05] MEDS: ONDANSETRON 4 MG/2 ML INJ IV (21:18)
[2019-02-05] MEDS: fentaNYL 100 MCG/2 ML INJ IV (21:20)
--- NOTE | 2019-02-05 21:48 | SUR.PHASEI ---
Phase I post op note: Arrived to PACU awake. VSS, O2 Sat WNL on RA. Pain level 8/10. Medicated by Anesthesia in PACU. FF 2 U. UOP in Mcrae Cath blood tinged, no clots. Secured on leg. tolerating Ice chips. Telephone report called to Reina. Stable [facility] inpatient bed.
[2019-02-06] MEDS: KETOROLAC 30 MG/ML VIAL IV ×3 (02:12→13:35)
[2019-02-06] MEDS: ONDANSETRON 4 MG/2 ML INJ IV (02:17)
[2019-02-06 05:17] LABS: Add Manual Diff / Slide Review NO; Basophils Absolute Auto 0 /uL (0-100); Basophils Percent Auto 0.4 % (0-2); Eosinophils Absolute Auto 0 /uL (0-450); Eosinophils Percent Auto 0.1 % (2-4); Hematocrit 29.3 % (36-46); Hemoglobin 10.2 g/dL (12.0-16.0); Lymphocytes Absolute Auto 1300 /uL (1100-4500); Mean Corpuscular HGB Conc 34.8 % (30-36); Mean Corpuscular Hemoglobin 30.7 PG (26-34); Mean Corpuscular Volume 88.3 fL (80-100); Monocytes Absolute Auto 500 /uL (0-900); Monocytes Percent Auto 6.3 % (3-14); Neutrophils Absolute Auto 6500 /uL (1500-7000); Neutrophils Percent Auto 78.2 % (50-75); Platelet Count 123 X10^3/uL (150-400); Red Blood Cell Count 3.32 X10^6/uL (4.0-5.2); Red Cell Distribution Width 12.5 % (11.6-14.8); White Blood Cell Count 8.4 X10^3/uL (4.5-11.0)
[2019-02-06] MEDS: OXYCODONE/ACETAMINOPHEN 5/325 TABLET 2 TAB PO ×3 (07:45→15:55)
[2019-02-06] MEDS: PRENATAL VIT,CALC/IRON/FOLIC 1 TABLET 1 TAB PO (08:32)
--- NOTE | 2019-02-06 09:58 | PM.PN.1 ---
Subjective Subjective Date Patient Seen: 02/06/19 Time Patient Seen: 09:58 Interval history: Postop day 1. Status post with tubal ligation. Patient is doing well today. Some mild abdominal pain with uterine contractions incisional pain but doing well. Bleeding has had expected. Patient has been Hep-Lock she started to tolerate her diet. Still has Mcrae in SCD and. Getting Toradol and oral Percocet. Has not been up moving yet. Breast-feeding is going well vital signs are stable. No significant anemia. Exam Vital Signs (past 8 hours): Oxygen Delivery Method Room Air Narrative Exam Narrative: General: Alert no apparent distress. Affect is appropriate. Saira it is uncomfortable. HEENT: Neck is supple without lymphadenopathy pupils equal round and reactive. Cardio: S1-S2 regular rate and rhythm. Respiratory: Lungs clear to auscultation. Abdomen: Uterus firm. Incision clean dry and intact. Extremities: Normal deep tendon reflexes trace edema. Objective Labs Result Diagrams: 02/06/19 05:10 Labs: Laboratory Results - last 24 hr 02/06/19 05:10 WBC 8.4 RBC 3.32 L Hgb 10.2 L Hct 29.3 L MCV 88.3 MCH 30.7 MCHC 34.8 RDW 12.5 Plt Count 123 L Neut % (Auto) 78.2 H D Lymph % (Auto) 15.0 L [place] % (Auto) 6.3 Eos % (Auto) 0.1 L Baso % (Auto) 0.4 Neut # (Auto) 6500 Lymph # (Auto) 1300 [place] # (Auto) 500 Eos # (Auto) 0 Baso # (Auto) 0 Assessment & Plan Assessment & Plan narrative: Postoperative day 1. Status post . Plan today hep lock IV. Advance diet. DC SCDs. DC Mcrae catheter. Ambulated the side of the bed may shower. Transition to oral pain medication. Bleeding as anticipated. Uterus is firm. Negative lower extremity calf tenderness.
[2019-02-06] MEDS: DOCUSATE 250 MG CAPSULE PO (13:46)
[2019-02-06] MEDS: HYDROCODONE/ACET 5/325 TABLET 1 TAB PO ×2 (19:35→23:51)
[2019-02-06] MEDS: IBUPROFEN 600 MG TABLET PO (19:35)
[2019-02-07] MEDS: IBUPROFEN 600 MG TABLET PO ×2 (01:39→07:51)
[2019-02-07] MEDS: HYDROCODONE/ACET 5/325 TABLET 1 TAB PO ×2 (03:17→07:53)
[2019-02-07 07:51] VITALS: TEMP 37.1
[2019-02-07] MEDS: DOCUSATE 250 MG CAPSULE PO (07:52)
[2019-02-07 07:53] VITALS: TEMP 37.1
[2019-02-07] MEDS: PRENATAL VIT,CALC/IRON/FOLIC 1 TABLET 1 TAB PO (07:53)
--- NOTE | 2019-02-07 11:04 | PM.DS.1 ---
History of Present Illness History of Present Illness Chief complaint: INDUCTION Narrative: 38-year-old female who is itchy 7 para 0 393 weeks days gestational age consistent with early ultrasound as well as LMP. problems including habitual border late transfer of care to [facility] at 35 weeks from the [place] blood type Rh negative for again given IUGR found 37 week ultrasound with biweekly NSTs and repeat ultrasound which showed estimated weight at 27% as opposed to 10%. Patient is here for induction of labor because of concerns about IUGR. Medicine these have been reactive during the last few weeks. Risks benefits of the induction process with her were reviewed including increased risk of off delivery and prolonged duration of labor. Consent was obtained and patient agreed. Patient's care began at 7 weeks at the [place] base she had routine follow-up and care. Her laboratory testing showed blood type A negative rubella unknown GBS negative HIV negative GC Chlamydia negative and hepatitis-B surface antigen negative. Normal glucose screen and normal ultrasound. Medications during vitamins. Patient's social history denies smoking drinking or alcohol. Denies recreational drugs. Gynecological history 6 previous miscarriages. Patient was not on aspirin or progesterone during this . Five previous miscarriages. One tubal . Previous history of chlamydia treated many years ago. Past medical history patient denies history of hypertension or heart disease asthma. Past surgical history breast augmentation rhinoplasty and salpingo oophorectomy. Discharge Providers Provider Date of admission: 02/04/19 17:45 Discharge Date: 02/07/19 Primary care physician: Jt Macias MD Consults: 02/05/19 22:15 Consult to [employer] Routine Comment: Discharge provider: Jt Macias MD Summary Hospital Course Discharge Diagnosis: 38-year-old female G7 now para 1 status post delivery of viable male infant Multigravida with previous history of multiple miscarriages. Advanced maternal age questionable IUGR based on ultrasound Routine care Hospital Course: Please see admission HPI for reason for admission in labor induction. Patient progressed during labor. But had category 2 tracing with some late D cells during stage II with slow progression patient was taken to the operating room and underwent primary without difficulty. Patient previously had a tubal . Had nonfunctioning tube on the right. During the operation patient requested permanent sterilization with left tubal surgery was completed at that time. day 1. She was tolerating oral diet. SCD Mcrae catheter and IV were were removed. She was ambulating. Pain was well controlled with oral pain medication. Postoperative day 2. She has general pain was stable. Patient is doing well with him activity tolerating diet bleeding is anticipated breast-feeding is going well. She was afebrile and vital signs were stable. Exam Vital Signs (past 8 hours): - 02/07/19 07:51 02/07/19 07:53 Temperature 98.8 F 98.8 F Oxygen Delivery Method Room Air Narrative Exam Narrative: General: Alert no apparent distress. Affect is appropriate. Saira it is uncomfortable. HEENT: Neck is supple without lymphadenopathy pupils equal round and reactive. Cardio: S1-S2 regular rate and rhythm. Respiratory: Lungs clear to auscultation. Abdomen: Uterus firm. Incision clean dry and intact. Extremities: Normal deep tendon reflexes trace edema. Objective Labs Result Diagrams: 02/06/19 05:10 Discharge Plan Discharge Plan Patient Disposition: Home Discharge comment: Follow-up with Dr. Macias in 7 days for incision test check and dressing change removal. Discharge orders & Medications Prescriptions: New hydrocodone-acetaminophen 5-325 mg Tablet 1 tab PO Q4HR PRN (Reason: Pain, Moderate (4-6)) Qty: 0 RF: 0 ibuprofen 600 mg Tablet 600 mg PO Q6HR PRN (Reason: Fever/Mild Pain (1-3)) Qty: 0 RF: 0 docusate sodium 250 mg Capsule 250 mg PO DAILY Qty: 0 RF: 0 Continued acetaminophen [Tylenol] 325 mg capsule 650 mg PO Q6H PRN (Reason: Headache) RF: 0 PNV 29-1 29 mg iron- 1 mg tablet 1 tab PO DAILY Qty: 60 RF: 0 Follow up/Referrals: Jt Macias MD [Primary Care Provider] - Diet/Activity/Treatments Diet comment: General Activity: tolerated Skin/Wound/Dressing Care Report to your healthcare provider any signs of infection, such as:: chills, fever and increased pain Dressing: Keep bandage clean and dry until next follow-up visit in 7 days. May shower Visit Report/Discharge Packet Visit Report Forms: Patient Portal/API, Stroke Signs & Symptoms Discharge Data Primary Care Provider: Jt Macias
== END 2019-02-07 13:47 | disposition home or self-care (01) | DRG 784 ==
PROVIDERS: Admitting Provider Family Medicine; PCP Family Medicine; Visit Provider Family Medicine
PROC: 10D00Z1 Extraction of Products of Conception, Low, Open Approach (ICD-10-PCS; CPT 59514; principal; 2019-02-05 19:20)
DX: O36.5930 Maternal care for other known or suspected poor fetal growth, third trimester, not applicable or unspecified (principal); O36.0930 Maternal care for other rhesus isoimmunization, third trimester, not applicable or unspecified; O77.8 Labor and delivery complicated by other evidence of fetal stress; O26.23 Pregnancy care for patient with recurrent pregnancy loss, third trimester; Z3A.39 39 weeks gestation of pregnancy; Z37.0 Single live birth; O64.8XX0 Obstructed labor due to other malposition and malpresentation, not applicable or unspecified; Z30.2 Encounter for sterilization
CPT/HCPCS: 01967; 01968; 58611; 59050; 59200; 59514; 59515; 85025; 86850; 86900; 86901; J1885; J2250; J2274; J2405; J2590; J2704; J3010